=== PATIENT | female | born 1955 | race American Indian/Alaskan Native ===

== ENCOUNTER 2017-05-21 13:01 | Emergency (ER) | payer BC ==
[2017-05-21] MEDS ORDERED: TYLENOL PO ONE (19:34)
[2017-05-21] MEDS ORDERED: TORADOL IM ONE (19:34)
--- NOTE | 2017-05-21 20:09 | Emergency Department Report ---
ED General Adult HPI - General Chief complaint: Pain General Stated complaint: PAIN IN LEG AND SHOULDER Time Seen by Provider: 05/21/17 18:56 Source: patient Mode of arrival: Ambulatory Limitations: No Limitations - History of Present Illness Initial comments: This is a 62-year-old female nontoxic, well nourished in appearance, no acute signs of distress presents to the ED with c/o of low back pain radiating bilateral to lower extremity and neck pain radiating to left upper extremity. Patient stated this is a chronic intermittent pain that has for many years. Patient denies any trauma to the region. Patient describes pain as aching and tingling with level of 8/10. Patient denies any numbness, fever, chills, headache, nausea, vomiting, chest pain, shortness of breathe, stiff neck, abdominal pain. Patient denies any drug allergies. PMH includes DM and HTN. MD Complaint: low and upper back pain -: year(s) Radiation: extremity Severity scale (0 -10): 8 Quality: aching Consistency: intermittent Improves with: immobilization Worsens with: movement Associated Symptoms: denies other symptoms. denies: confusion, chest pain, cough, diaphoresis, fever/chills, headaches, loss of appetite, malaise, nausea/ vomiting, rash, seizure, shortness of breath, syncope, weakness Treatments Prior to Arrival: none - Related Data Previous Rx's Medication Instructions Recorded Last Taken Type Lisinopril [Zestril] 40 mg PO DAILY #30 tablet 11/10/13 Unknown Rx Insulin Glargine,Hum.rec.anlog 20 unit SQ QHS #14 03/06/14 Unknown Rx [Lantus] Metformin HCl [Glucophage] 1,000 mg PO BID #60 tablet 03/06/14 Unknown Rx glipiZIDE [glipiZIDE XL] 10 mg PO DAILY #30 tab.er.24 03/06/14 Unknown Rx Lisinopril [Zestril TAB] 40 mg PO QDAY #30 tablet 03/07/14 Unknown Rx Gabapentin [Neurontin] 300 mg PO BID #30 cap 05/21/17 Unknown Rx Naproxen 500 mg PO Q12H #30 tablet 05/21/17 Unknown Rx Allergies Allergy/AdvReac Type Severity Reaction Status Date / Time No Known Allergies Allergy Unverified 11/10/13 09:21 ED Review of Systems ROS: Stated complaint: PAIN IN LEG AND SHOULDER Other details as noted in HPI Constitutional: denies: chills, fever Eyes: denies: eye pain, eye discharge, vision change ENT: denies: ear pain, throat pain Respiratory: denies: cough, shortness of breath, wheezing Cardiovascular: denies: chest pain, palpitations Endocrine: no symptoms reported Gastrointestinal: denies: abdominal pain, nausea, diarrhea Genitourinary: denies: urgency, dysuria, discharge Musculoskeletal: back pain, arthralgia. denies: joint swelling Skin: denies: rash, lesions Neurological: denies: headache, weakness, paresthesias Psychiatric: denies: anxiety, depression Hematological/Lymphatic: denies: easy bleeding, easy bruising ED Past Medical Hx - Past Medical History Hx Hypertension: Yes Hx Diabetes: Yes - Surgical History Additional Surgical History: tubal ligation - Social History Smoking Status: Never Smoker Substance Use Type: None - Medications Home Medications: Home Medications Medication Instructions Recorded Confirmed Last Taken Type Lisinopril [Zestril] 40 mg PO DAILY #30 tablet 11/10/13 03/06/14 Unknown Rx Insulin Glargine,Hum.rec.anlog 20 unit SQ QHS #14 03/06/14 Unknown Rx [Lantus] Metformin HCl [Glucophage] 1,000 mg PO BID #60 tablet 03/06/14 Unknown Rx glipiZIDE [glipiZIDE XL] 10 mg PO DAILY #30 tab.er.24 03/06/14 Unknown Rx Lisinopril [Zestril TAB] 40 mg PO QDAY #30 tablet 03/07/14 Unknown Rx Gabapentin [Neurontin] 300 mg PO BID #30 cap 05/21/17 Unknown Rx Naproxen 500 mg PO Q12H #30 tablet 05/21/17 Unknown Rx ED Physical Exam - General Limitations: No Limitations General appearance: alert, in no apparent distress - Head Head exam: Present: atraumatic, normocephalic, normal inspection - Eye Eye exam: Present: normal appearance, PERRL, EOMI. Absent: scleral icterus, conjunctival injection, nystagmus, periorbital swelling, periorbital tenderness Pupils: Present: normal accommodation - ENT ENT exam: Present: normal exam, normal orophraynx, mucous membranes moist, TM's normal bilaterally, normal external ear exam - Neck Neck exam: Present: normal inspection, full ROM. Absent: tenderness, meningismus, lymphadenopathy, thyromegaly - Respiratory Respiratory exam: Present: normal lung sounds bilaterally. Absent: respiratory distress, wheezes, rales, rhonchi, stridor, chest wall tenderness, accessory muscle use, prolonged expiratory - Cardiovascular Cardiovascular Exam: Present: regular rate, normal rhythm, normal heart sounds. Absent: irregular rhythm, systolic murmur, diastolic murmur, rubs, gallop - GI/Abdominal GI/Abdominal exam: Present: soft, normal bowel sounds. Absent: distended, tenderness, guarding, rebound, rigid, diminished bowel sounds - Rectal Rectal exam: Present: deferred - Extremities Exam Extremities exam: Present: normal inspection, full ROM, normal capillary refill. Absent: tenderness, pedal edema, joint swelling, calf tenderness - Back Exam Back exam: Present: normal inspection, full ROM, paraspinal tenderness (cervial and lumbar region). Absent: tenderness, CVA tenderness (R), CVA tenderness (L) , muscle spasm, vertebral tenderness, rash noted - Expanded Back Exam Expanded Back exam: Absent: saddle anesthesia Back exam: Negative Straight Leg Raising: Left, Right - Neurological Exam Neurological exam: Present: alert, oriented X3, CN II-XII intact, normal gait, reflexes normal - Psychiatric Psychiatric exam: Present: normal affect, normal mood - Skin Skin exam: Present: warm, dry, intact, normal color. Absent: rash ED Course Vital Signs 05/21/17 05/21/17 14:31 20:01 Temperature 98.5 F Pulse Rate 91 H Respiratory 20 18 Rate Blood Pressure 183/86 Blood Pressure 183/86 [Right] O2 Sat by Pulse 99 Oximetry - Reevaluation(s) Reevaluation #1: 05/21/17 20:09 Patient is speaking in full sentences with no signs of distress noted. ED Medical Decision Making - Medical Decision Making This is a 62-year-old female that presents with diabetic neuropathy, cervical radiculopathy, and lumbar radiculopathy. PAtient is stable and was examined by me. Patient received Toradol and Tylenol in the ED was placed symptoms are improving and has subsided. I will treat patient with naproxen and gabapentin. Patient was instructed to Follow-up with a primary care doctor in 3-5 days or if symptoms worsen and continue return to emergency room as soon as possible. At time time of discharge, the patient does not seem toxic or ill in appearance. No acute signs of distress noted. Patient agrees to discharge treatment plan of care. No further questions noted by the patient. Critical care attestation.: If time is entered above; I have spent that time in minutes in the direct care of this critically ill patient, excluding procedure time. ED Disposition Clinical Impression: Cervical radiculopathy, Lumbar radiculopathy Diabetic neuropathy Qualifiers: Diabetes mellitus type: other specified (including PATRICK) Diabetes mellitus complication detail: with other neurological complication Qualified Code(s): E13.49 - Other specified diabetes mellitus with other diabetic neurological complication Disposition: DC- TO HOME OR SELFCARE Is pt being admited?: No Does the pt Need Aspirin: No Condition: Stable Instructions: Gabapentin (By mouth), Naproxen (By mouth) Additional Instructions: Follow-up with a primary care doctor in 3-5 days or if symptoms worsen and continue return to emergency room as soon as possible. Prescriptions: Gabapentin [Neurontin] 300 mg PO BID #30 cap Naproxen 500 mg PO Q12H #30 tablet Referrals: PRIMARY CARE, [Primary Care Provider] - 3-5 Days ZAID IRAHETA MD [Staff Physician] - 3-5 Days [facility] [Outside] - 3-5 Days [facility] [Outside] - 3-5 Days Forms: Work/School Release Form(ED)
[2017-05-21 20:43] VITALS: BP 172/84
== END 2017-05-21 20:49 | disposition home or self-care (01) ==
LOC: ED 13:01
DX: M54.12 Radiculopathy, cervical region (principal); M54.16 Radiculopathy, lumbar region; E11.49 Type 2 diabetes mellitus with other diabetic neurological complication
CPT/HCPCS: 96372; 99282; J1885

== ENCOUNTER 2018-10-31 08:12 | Emergency (ER) | payer BC, OTHER, SELFPAY ==
[2018-10-31 09:14] LABS: Basophils % (Auto) 0.6 % (0.0-1.8); Eosinophils # (Auto) 0.3 K/mm3 (0.0-0.4); Eosinophils % (Auto) 3.3 % (0.0-4.3); Hematocrit 30.4 % (30.3-42.9); Lymphocytes # (Auto) 1.2 K/mm3 (1.2-5.4); Lymphocytes % (Auto) 14.7 % (13.4-35.0); Mean Corpuscular HGB Conc 33 % (30-34); Mean Corpuscular Volume 79 fl (79-97); Monocytes # (Auto) 0.5 K/mm3 (0.0-0.8); Monocytes % (Auto) 6.3 % (0.0-7.3); Platelet Count 171 K/mm3 (140-440); Red Blood Count 3.85 M/mm3 (3.65-5.03); Red Cell Distribution Width 14.8 % (13.2-15.2)
[2018-10-31 09:33] LABS: Albumin 3.7 g/dL (3.9-5); BUN/Creatinine Ratio 15; Blood Urea Nitrogen 12 mg/dL (7-17); Hemolysis Index 100
[2018-10-31 09:46] LABS: Bacteria,Urine 2+ /HPF (Negative); Bilirubin,Urine NEG (Negative); Blood,Urine NEG (Negative); Color,Urine Yellow (Yellow); Mucus,Urine FEW /HPF; Protein,Urine >500 mg/dL (Negative); Urobilinogen,Urine < 2.0 mg/dL (<2.0)
[2018-10-31 10:01] LABS: Alanine Aminotransferase 18 units/L (7-56)
[2018-10-31] MEDS ORDERED: CATAPRES PO ONE (10:48)
--- NOTE | 2018-10-31 11:03 | Emergency Department Report ---
ED General Adult HPI - General Chief complaint: High BP Stated complaint: HBP/BLURRED VISION Time Seen by Provider: 10/31/18 10:19 Source: patient Mode of arrival: Ambulatory Limitations: No Limitations - History of Present Illness Initial comments: Patient is a 63-year-old female past medical history of high blood pressure who presents with blurred vision for a week. Patient states that she's been off her lisinopril and HCTZ. Patient denies having any headache she denies any nausea or vomiting. She denies having any fevers or chills. Patient states that she's been having blurry vision for the last couple months. And then she was wondering about maybe taking some eyedrops for her. Patient does not smoke and patient does not drink. - Related Data Previous Rx's Medication Instructions Recorded Last Taken Type Lisinopril/Hydrochlorothiazide 1 tab PO QDAY #60 tab 10/31/18 Unknown Rx [Zestoretic 20-25 mg] amLODIPine [Norvasc] 10 mg PO DAILY #60 tab 10/31/18 Unknown Rx Allergies Allergy/AdvReac Type Severity Reaction Status Date / Time No Known Allergies Allergy Unverified 11/10/13 09:21 ED Review of Systems ROS: Stated complaint: HBP/BLURRED VISION Other details as noted in HPI Constitutional: denies: chills, fever Eyes: as per HPI. denies: eye pain, eye discharge, vision change ENT: denies: ear pain, throat pain Respiratory: denies: cough, shortness of breath, wheezing Cardiovascular: denies: chest pain, palpitations Endocrine: no symptoms reported Gastrointestinal: denies: abdominal pain, nausea, diarrhea Genitourinary: denies: urgency, dysuria, discharge Musculoskeletal: denies: back pain, joint swelling, arthralgia Skin: denies: rash, lesions Neurological: denies: headache, weakness, paresthesias Psychiatric: denies: anxiety, depression Hematological/Lymphatic: denies: easy bleeding, easy bruising ED Past Medical Hx - Past Medical History Previous Medical History?: Yes Hx Hypertension: Yes Hx Heart Attack/AMI: No Hx Diabetes: Yes Hx Renal Disease: Yes (acute kidney insuffiency. on dialysis) - Surgical History Past Surgical History?: Yes Additional Surgical History: tubal ligation - Social History Smoking Status: Former Smoker Substance Use Type: Alcohol, Prescribed - Medications Home Medications: Home Medications Medication Instructions Recorded Confirmed Last Taken Type Lisinopril/Hydrochlorothiazide 1 tab PO QDAY #60 tab 10/31/18 Unknown Rx [Zestoretic 20-25 mg] amLODIPine [Norvasc] 10 mg PO DAILY #60 tab 10/31/18 Unknown Rx ED Physical Exam - General Limitations: No Limitations General appearance: alert, in no apparent distress - Head Head exam: Present: atraumatic, normocephalic - Eye Eye exam: Present: normal appearance - ENT ENT exam: Present: mucous membranes moist - Neck Neck exam: Present: normal inspection - Respiratory Respiratory exam: Present: normal lung sounds bilaterally. Absent: respiratory distress - Cardiovascular Cardiovascular Exam: Present: regular rate, normal rhythm. Absent: systolic murmur, diastolic murmur, rubs, gallop - GI/Abdominal GI/Abdominal exam: Present: soft, normal bowel sounds - Extremities Exam Extremities exam: Present: normal inspection - Back Exam Back exam: Present: normal inspection - Neurological Exam Neurological exam: Present: alert, oriented X3 - Psychiatric Psychiatric exam: Present: normal affect, normal mood - Skin Skin exam: Present: warm, dry, intact, normal color. Absent: rash ED Course Vital Signs 10/31/18 10/31/18 10/31/18 08:23 10:09 10:15 Temperature 98.4 F Pulse Rate 96 H 95 H 93 H Respiratory 18 18 18 Rate Blood Pressure 202/97 220/114 O2 Sat by Pulse 97 96 94 Oximetry 10/31/18 10/31/18 10/31/18 10:30 10:45 11:02 Temperature Pulse Rate 92 H 92 H 94 H Respiratory 18 18 Rate Blood Pressure 223/111 220/114 197/114 O2 Sat by Pulse 92 93 Oximetry ED Medical Decision Making - Lab Data Result diagrams: 10/31/18 08:44 10/31/18 08:44 Lab Results 10/31/18 10/31/18 10/31/18 Range/Units 08:34 08:44 08:44 WBC 8.1 (4.5-11.0) K/mm3 RBC 3.85 (3.65-5.03) M/mm3 Hgb 10.0 L (10.1-14.3) gm/dl Hct 30.4 (30.3-42.9) % MCV 79 (79-97) fl MCH 26 L (28-32) pg MCHC 33 (30-34) % RDW 14.8 (13.2-15.2) % Plt Count 171 (140-440) K/mm3 Lymph % (Auto) 14.7 (13.4-35.0) % [place] % (Auto) 6.3 (0.0-7.3) % Eos % (Auto) 3.3 (0.0-4.3) % Baso % (Auto) 0.6 (0.0-1.8) % Lymph # 1.2 (1.2-5.4) K/mm3 [place] # 0.5 (0.0-0.8) K/mm3 Eos # 0.3 (0.0-0.4) K/mm3 Baso # 0.0 (0.0-0.1) K/mm3 Seg Neutrophils % 75.1 H (40.0-70.0) % Seg Neutrophils # 6.1 (1.8-7.7) K/mm3 Sodium 145 (137-145) mmol/L Potassium 4.3 (3.6-5.0) mmol/L Chloride 107.8 H (98-107) mmol/L Carbon Dioxide 25 (22-30) mmol/L Anion Gap 17 mmol/L BUN 12 (7-17) mg/dL Creatinine 0.8 (0.7-1.2) mg/dL Estimated GFR > 60 ml/min BUN/Creatinine Ratio 15 % Glucose 114 H (65-100) mg/dL POC Glucose 134 H (70-105) Calcium 9.0 (8.4-10.2) mg/dL Total Bilirubin 0.40 (0.1-1.2) mg/dL AST 22 (5-40) units/L ALT 18 (7-56) units/L Alkaline Phosphatase 82 (35-129) units/L Total Protein 6.3 (6.3-8.2) g/dL Albumin 3.7 L (3.9-5) g/dL Albumin/Globulin Ratio 1.4 % Urine Color (Yellow) Urine Turbidity (Clear) Urine pH (5.0-7.0) Ur Specific [place] (1.003-1.030) Urine Protein (Negative) mg/dL Urine Glucose (UA) (Negative) mg/dL Urine Ketones (Negative) mg/dL Urine Blood (Negative) Urine Nitrite (Negative) Urine Bilirubin (Negative) Urine Urobilinogen (<2.0) mg/dL Ur Leukocyte Esterase (Negative) Urine WBC (Auto) (0.0-6.0) /HPF Urine RBC (Auto) (0.0-6.0) /HPF U Epithel Cells (Auto) (0-13.0) /HPF Urine Bacteria (Auto) (Negative) /HPF Urine Mucus /HPF 10/31/18 Range/Units 09:03 WBC (4.5-11.0) K/mm3 RBC (3.65-5.03) M/mm3 Hgb (10.1-14.3) gm/dl Hct (30.3-42.9) % MCV (79-97) fl MCH (28-32) pg MCHC (30-34) % RDW (13.2-15.2) % Plt Count (140-440) K/mm3 Lymph % (Auto) (13.4-35.0) % [place] % (Auto) (0.0-7.3) % Eos % (Auto) (0.0-4.3) % Baso % (Auto) (0.0-1.8) % Lymph # (1.2-5.4) K/mm3 [place] # (0.0-0.8) K/mm3 Eos # (0.0-0.4) K/mm3 Baso # (0.0-0.1) K/mm3 Seg Neutrophils % (40.0-70.0) % Seg Neutrophils # (1.8-7.7) K/mm3 Sodium (137-145) mmol/L Potassium (3.6-5.0) mmol/L Chloride (98-107) mmol/L Carbon Dioxide (22-30) mmol/L Anion Gap mmol/L BUN (7-17) mg/dL Creatinine (0.7-1.2) mg/dL Estimated GFR ml/min BUN/Creatinine Ratio % Glucose (65-100) mg/dL POC Glucose (70-105) Calcium (8.4-10.2) mg/dL Total Bilirubin (0.1-1.2) mg/dL AST (5-40) units/L ALT (7-56) units/L Alkaline Phosphatase (35-129) units/L Total Protein (6.3-8.2) g/dL Albumin (3.9-5) g/dL Albumin/Globulin Ratio % Urine Color Yellow (Yellow) Urine Turbidity Slightly-cloudy (Clear) Urine pH 7.0 (5.0-7.0) Ur Specific [place] 1.012 (1.003-1.030) Urine Protein >500 (Negative) mg/dL Urine Glucose (UA) Neg (Negative) mg/dL Urine Ketones Neg (Negative) mg/dL Urine Blood Neg (Negative) Urine Nitrite Neg (Negative) Urine Bilirubin Neg (Negative) Urine Urobilinogen < 2.0 (<2.0) mg/dL Ur Leukocyte Esterase Neg (Negative) Urine WBC (Auto) 3.0 (0.0-6.0) /HPF Urine RBC (Auto) 7.0 (0.0-6.0) /HPF U Epithel Cells (Auto) 3.0 (0-13.0) /HPF Urine Bacteria (Auto) 2+ (Negative) /HPF Urine Mucus Few /HPF - Medical Decision Making Chief medical diagnosis: Hypertensive urgency Differential diagnosis: Hypertensive emergency, chronic kidney disease I will get CBC BMP EKG or clonidine and CT SCAN OF HEAD. Critical care attestation.: If time is entered above; I have spent that time in minutes in the direct care of this critically ill patient, excluding procedure time. ED Disposition Clinical Impression: Hypertensive urgency Disposition: DC-01 TO HOME OR SELFCARE Is pt being admited?: No Does the pt Need Aspirin: No Condition: Stable Instructions: Chronic Hypertension (ED), Hypertension (ED) Prescriptions: amLODIPine [Norvasc] 10 mg PO DAILY #60 tab Lisinopril/Hydrochlorothiazide [Zestoretic 20-25 mg] 1 tab PO QDAY #60 tab Referrals: MG DAVILA MD [Primary Care Provider] - 3-5 Days
--- NOTE | 2018-10-31 11:49 | Cat Scan Report ---
CT HEAD WITHOUT CONTRAST INDICATION / CLINICAL INFORMATION: Hypertensive patient with dizziness. TECHNIQUE: All CT scans at this location are performed using CT dose reduction for ALARA by means of automated e xposure control. COMPARISON: None available. FINDINGS: HEMORRHAGE: No evidence of intracranial hemorrhage or extra-axial fluid collection. EXTRA-AXIAL SPACES: Cortical sulci, sylvian fissures and basilar cisterns have an unremarkable appear ance. VENTRICULAR SYSTEM: The ventricular system is of normal size and configuration. CEREBRAL PARENCHYMA: No areas of abnormal brain parenchymal attenuation are identified. There is no i ndication of recent infarction. MIDLINE SHIFT OR HERNIATION: There is no mass effect. CEREBELLUM / BRAINSTEM: Brainstem and cerebellum have an unremarkable appearance. INTRACRANIAL VESSELS:No abnormalities are identified on this noncontrast head CT. ORBITS: visualized portions of the orbits have an unremarkable appearance. SOFT TISSUES of HEAD: No significant abnormality. CALVARIUM: Evaluation of bone windows reveals no abnormalities. PARANASAL SINUSES / MASTOID AIR CELLS: Mucosal disease is present in the right sphenoid sinus. Visual ized paranasal sinuses are otherwise free from inflammatory mucosal disease. Mastoid air cells are no rmally pneumatized. SELLA TURCICA: This is largely filled with CSF attenuation material. There is no evidence of pituitar y mass. IMPRESSION: 1. No significant abnormalities are identified on head CT without contrast. Signer Name: Eduardo Phelps MD Signed: 10/31/2018 11:45 AM Workstation Name: [id number]
[2018-10-31 13:06] VITALS: BP 169/82
== END 2018-10-31 13:25 | disposition home or self-care (01) ==
LOC: ED 08:12
DX: I16.0 Hypertensive urgency (principal); I10 Essential (primary) hypertension; R51 Headache; E11.9 Type 2 diabetes mellitus without complications; Z87.891 Personal history of nicotine dependence; Z98.51 Tubal ligation status
CPT/HCPCS: 36415; 70450; 80053; 81001; 82962; 85025; 93005; 93010